=== PATIENT | male | born 2005 | race Hispanic/Latino ===

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

== ENCOUNTER 2025-04-03 13:34 | Emergency (ER) | payer BC ==
[~2025-04-03] VITALS: Ht 167.6 cm; Wt 127.0 kg
[2025-04-03 13:45] VITALS: PULSE 87; RESP 18; TEMP 97.8; O2SAT 100
[2025-04-03] MEDS ORDERED: EYE IRRIGATION (OPTH) 120 ML BTL OP ONE (14:00)
[2025-04-03] MEDS ORDERED: TETRACAINE HCL 0.5% OPTH SOLN 4 ML BTL ONE (14:05)
[2025-04-03] MEDS: FLUORESCEIN SOD(OPTH) 1 MG STRP OP ONE (14:12)
[2025-04-03] MEDS: TETRACAINE HCL 0.5% OPTH SOLN 4 ML BTL OP ONE (14:13)
== END 2025-04-03 14:25 | disposition home or self-care (01) ==
LOC: ER 14:03
DX: H11.31 Conjunctival hemorrhage, right eye (principal); W22.09XA Striking against other stationary object, initial encounter; Y93.01 Activity, walking, marching and hiking; Y92.89 Other specified places as the place of occurrence of the external cause; J45.909 Unspecified asthma, uncomplicated
CPT/HCPCS: 99282